=== PATIENT | male | born 1940 | race Caucasian/White ===

== ENCOUNTER 2019-04-20 13:17 | Observation (INO) | payer MEDICARE ==
--- NOTE | 2019-04-20 13:46 | ED ---
Neurological HPI - HPI Summary HPI Summary: This patient is a 78 year old M arriving via ambulance to [facility] with a chief complaint of increasing weakness since two days ago 04/18/19. Patient states that prior to arrival, as he was attempting to self-catheterize, patient slid off his bed due to increasing weakness in his bilateral lower extremities and landed on the floor and was unable to get up. Patient states that he usually self-catheterizes X2 a day yielding 64 oz. Patient additionally complains of feeling the urge to urinate, urinary retention, and decreased urine output since two days ago 04/18/19. Patient also complains of intermittent episodes of back spasms onset 1 week ago characterized as a jabbing pain which makes walking difficult. The patient rates the pain 0/10 in severity. Symptoms aggravated by nothing. Symptoms alleviated by nothing. Patient notes that he was diagnosed 6 months ago with swelling of left ventricle in his brain resulting in neuropathy in his bilateral lower extremities and bladder. - History of Current Complaint Chief Complaint: EDWeakness Stated Complaint: GENERAL WEAKNESS PER EMS Time Seen by Provider: 04/20/19 13:27 Hx Obtained From: Patient Onset/Duration: Started days ago - 04/18/19, Still Present Timing: Constant Current Severity: None Neurological Deficit Location: Generalized, RUE, LUE, RLE, LLE Pain Intensity: 0 Pain Scale Used: 0-10 Numeric Character: Weak Aggravating: Nothing Alleviating: Nothing - Allergy/Home Medications Allergies/Adverse Reactions: Allergies Allergy/AdvReac Type Severity Reaction Status Date / Time bee venom protein (honey bee) Allergy Anaphylatic Verified 04/20/19 13:48 Shock NO MRIs - PACEMAKER NOT Allergy NO MRIs - Uncoded 04/20/19 13:48 COMPATIBLE PACEMAKER NOT COMPATIBLE Home Medications: Home Medications Allopurinol 1 tab PO DAILY 04/20/19 [History Confirmed 04/20/19] Zinc 1 tab PO DAILY 04/20/19 [History Confirmed 04/20/19] PMH/Surg Hx/FS Hx/Imm Hx Endocrine/Hematology History: Reports: Hx Diabetes Cardiovascular History: Reports: Hx Hypertension, Hx Pacemaker/ICD - BIOTRONIK SHREE PATTERSON IS NOT MR COMPATIBLE/CONDITIONAL- NO MRIs - Surgical History Surgery Procedure, Year, and Place: PACEMAKER, BILATERAL HIP REPLACEMENT Infectious Disease History: No Infectious Disease History: Denies: Traveled Outside the [place] in Last 30 Days - Family History Known Family History: Positive: Hypertension, Diabetes - NIDDM - Social History Alcohol Use: Weekly Hx Substance Use: No Substance Use Type: Reports: None Hx Tobacco Use: Yes Smoking Status (MU): Light Every Day Tobacco Smoker Review of Systems Positive: urgency, other - urinary retention, decreased urine output Positive: Other - back spasms Positive: Weakness - 04/18/19 All Other Systems Reviewed And Are Negative: Yes Physical Exam - Summary Physical Exam Summary: Appearance: The patient is well-nourished in no acute distress and in no acute pain. Skin: The skin is warm, dry, and tense and skin color reflects adequate perfusion. HEENT: The head is normocephalic and atraumatic. The pupils are equal and reactive. The conjunctivae are clear and without drainage. Nares are patent and without drainage. Mouth reveals dry mucous membranes and the throat is without erythema and exudate. The external ears are intact. The ear canals are patent and without drainage. The tympanic membranes are intact. Neck: The neck is supple with full range of motion and non-tender. There are no carotid bruits. There is no neck vein distension. Respiratory: Chest is non-tender. Lungs are clear to auscultation and breath sounds are symmetrical and equal. Cardiovascular: Heart is regular rate and rhythm. There is no murmur or rub auscultated. There is no peripheral edema and pulses are symmetrical and equal. Abdomen: The abdomen is soft and non-tender. There are normal bowel sounds heard in all four quadrants and there is no organomegaly palpated. Musculoskeletal: There is no back tenderness noted. Extremities are non-tender with full range of motion. There is good capillary refill. There is no peripheral edema or calf tenderness elicited. Neurological: Patient is alert and oriented to person, place and time. The patient has symmetrical motor strength in all four extremities. Cranial nerves are grossly intact. Deep tendon reflexes are symmetrical and equal in all four extremities. Triage Information Reviewed: Yes Vital Signs On Initial Exam: Initial Vitals Temp Pulse Resp BP Pulse Ox 99.3 F 89 30 131/74 94 04/20/19 13:29 04/20/19 13:29 04/20/19 13:29 04/20/19 13:29 04/20/19 13:29 Vital Signs Reviewed: Yes Diagnostics - Vital Signs Vital Signs Temp Pulse Resp BP Pulse Ox 04/20/19 13:29 99.3 F 89 30 131/74 94 - Laboratory Result Diagrams: 04/20/19 13:46 04/20/19 13:46 Lab Statement: Any lab studies that have been ordered have been reviewed, and results considered in the medical decision making process. - Radiology Chest Xray Radiology Interpretation Completed By: Radiologist Summary of Radiographic Findings: IMPRESSION: No active disease is noted. No changes noted since June 22, 2015. ED Physician has reviewed this report. - EKG 1426 Cardiac Rate: NL - 90 BPM EKG Rhythm: Sinus Rhythm Summary of EKG Findings: Normal sinus rhythm at 90 BPM, Non-specific anterolateral leads Course/Dx - Course Course Of Treatment: Mr. Lovell presented with a concern for being very weak. He hasn't gotten out of bed really in 2 days. Today he was doing a self catheter and his legs were so weak that he slid out of bed. On presentation was nontoxic and in triage listed him as having a respiratory rate of 30, when I evaluated him in the room his respiratory rate was 16 and he was speaking in full sentences without any difficulty. His white blood cell count returned at 17,000. His respiratory rate varied but I did not consider him to be meeting septic criteria. He was however given fluids and antibiotics with the presumption of unknown organism. When he was cathetered was revealed that he likely had a urinary tract infection. He continued to be too weak really to get up and the hospitalists were contacted for admission. - Diagnoses Provider Diagnoses: UTI (urinary tract infection), Weakness - Physician Notifications Discussed Care Of Patient With: Lora Morgan Time Discussed With Above Provider: 15:51 Instructed by Provider To: Other - Dr. Morgan, Hospitalist, agrees to admit Discharge ED - Sign-Out/Discharge Documenting (check all that apply): Patient Departure - Admit Patient Received Moderate/Deep Sedation with Procedure: No - Discharge Plan Condition: Stable Disposition: ADMITTED TO [facility] Referrals: Winifred Miranda MD [Primary Care Provider] - - Billing Disposition and Condition Condition: STABLE Disposition: Admitted to [facility] - Attestation Statements Document Initiated by Scribe: Yes Documenting Scribe: Merced Butler Provider For Whom Scribe is Documenting (Include Credential): Alexx Monte MD Scribe Attestation: IMerced, scribed for Alexx Monte MD on 04/20/19 at 1800. Scribe Documentation Reviewed: Yes Provider Attestation: The documentation as recorded by the scribeMerced accurately reflects the service I personally performed and the decisions made by me, Alexx Monte MD Status of Scribe Document: Viewed
[2019-04-20 13:53] LABS: Hematocrit 41 % (42-52); Hemoglobin 13.9 g/dL (14.0-18.0); Mean Corpuscular HGB Conc 34 g/dL (31-36); Mean Corpuscular Hemoglobin 31 pg (27-31); Mean Corpuscular Volume 92 fL (80-94); Mean Platelet Volume 7.4 fL (7.4-10.4); Platelet Count 133 10^3/uL (150-450); Red Blood Count 4.43 10^6 /uL (4.18-5.48); Red Cell Distribution Width 14 % (10-15)
[2019-04-20 14:11] LABS: Albumin 3.9 g/dL (3.2-5.2); Albumin/Globulin Ratio 1.1 (1-3); BUN/Creatinine Ratio 15.1 (8-20); C Reactive Protein 197.31 mg/L (<8.01); Calcium 9.2 mg/dL (8.6-10.3); EGFR Non-African American 49.5 (>60); Globulin 3.4 g/dL (2-4); Magnesium 1.6 mg/dL (1.9-2.7); Potassium 3.8 mmol/L (3.5-5.0); Total Protein 7.3 g/dL (6.4-8.9)
[2019-04-20 14:13] LABS: Troponin I 0.01 ng/mL (<0.04)
[2019-04-20 14:15] LABS: ABS Basophils 0.1 10^3/ul (0-0.2); ABS Lymphocytes 0.9 10^3/ul (1.0-4.8); ABS Monocytes 1.1 10^3/ul (0-0.8); ABS Neutrophils 14.9 10^3/ul (1.5-7.7); Lymphocyte % 5.4 %
[2019-04-20] MEDS ORDERED: NS 0.9% 1000 ML** 2,000 ML IV ONE (14:15)
[2019-04-20 14:34] LABS: Urine Appearance Cloudy; Urine Bacteria 1+ (Absent); Urine Bilirubin Negative (Negative); Urine Blood 3+ (Negative); Urine Color Amber; Urine Glucose Negative (Negative); Urine Ketones Negative (Negative); Urine Nitrite Positive (Negative); Urine Protein 1+(30 mg/dL) (Negative); Urine Red Blood Cell 3+(>10/hpf) (Absent); Urine Specific Gravity 1.019 (1.010-1.030); Urine Squamous Epithelial Cell Present (Absent); Urine Urobilinogen Negative (Negative); Urine White Blood Cell 3+(>20/hpf) (Absent)
[2019-04-20] MEDS ORDERED: Piperacillin/Tazobac ADVAN(*) 3.375 GM in NS 0.9% 100 ML* 100 ML IVPB ONE (14:47)
[2019-04-20 14:59] LABS: TSH (Thyroid Stimulating Horm) 0.41 mcIU/mL (0.34-5.60)
[2019-04-20] MEDS ORDERED: Magnesium Sulfate 2 GM IV* 2 GM/50 ML BAG IVPB ONE (16:16)
[2019-04-20] MEDS ORDERED: Ondansetron INJ* 2 MG/ML VIAL IV PRN (16:48)
[2019-04-20] MEDS ORDERED: Acetaminophen TAB* 325 MG PO PRN (16:48)
[2019-04-20] MEDS ORDERED: Enoxaparin(*) 40 MG/0.4 ML SYR SUBCUT SCH (17:00)
[2019-04-20] MEDS: Lactated Ringers 1000 ML Bag* 1,000 ML IV SCH (18:14)
--- NOTE | 2019-04-20 20:22 | HP ---
CC: Dr. Sheets; Dr. Morgan* ADMISSION HISTORY AND PHYSICAL: DATE OF ADMISSION: 04/20/19 PRIMARY CARE PROVIDER: Dr. Sheets. MY ATTENDING WHILE IN THE HOSPITAL: Dr. Morgan* (dictated by ENRIQUE Hall ). CHIEF COMPLAINT: Weakness x5 days. HISTORY OF PRESENT ILLNESS: Mr. Lovell is a 78-year-old male with past medical history significant for neuropathy, chronic urinary retention with straight catheterization twice daily, coronary artery disease, and possible normal pressure hydrocephalus, who presents to the emergency department after 5 days ago he began having worsening back spasms without radicular pain or worsening focal weakness in his lower legs, but with worsening of feeling, generally of sleeping more and at that time, he was as normal able to urinate a small amount and then needed straight cath, but then he lost the ability to have any spontaneous urination, was needed to straight cath twice daily for a large amount. The patient slept approximately 14 hours last night. The patient fell yesterday and was able to get himself up and felt very weak and then today fell and was on the floor for approximately 20 minutes. The patient came to the emergency department and was found to have an elevated white blood cell count, positive urinalysis and was unable to walk adequately to be safe for outpatient treatment. We were asked to evaluate the patient for admission to the hospital. The patient had a fever of what he reports to be 101 at home this morning. 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 2. Emphysema. 3. Neuropathy. 4. Diabetes. 5. Urinary retention. 6. BPH. 7. Coronary artery disease. 8. Gout. 9. B12 deficiency. PAST SURGICAL HISTORY: 1. Bypass. 2. Pacemaker implantation. MEDICATIONS: 1. [place]-3 fatty acids 2000 mg p.o. b.i.d. 2. Cholecalciferol 5000 units p.o. daily. 3. Metformin 850 mg p.o. t.i.d. 4. Vitamin B12, 2500 mcg sublingual daily. 5. Rosuvastatin 5 mg p.o. weekly. 6. Allopurinol 100 mg p.o. daily. 7. Zinc 50 mg p.o. daily. ALLERGIES: Bee venom. FAMILY HISTORY: The patient's father of cancer at 84. The patient's mother of old age at 94. The patient has 1 sister, who has a focal painful neuropathy and had a brother who of complications of throat cancer treatment and has a sister who is healthy. SOCIAL HISTORY: The patient smokes 3 to 4 cigarettes a day. The patient drinks a small glass of wine nightly. The patient denies illicit drug use. The patient used to work as a junior copywriter and a contractor. The patient is and has 1 child. The patient's surrogate decision maker will be his , Fatuma Lovell. REVIEW OF SYSTEMS: A 14-point review of systems was reviewed and is negative except as above in the HPI. PHYSICAL EXAMINATION GENERAL: The patient is a 78-year-old male, who appears stated age, sitting comfortably in bed, in no acute distress. VITAL SIGNS: At the time of evaluation, temperature 99.3, pulse rate 87, respiratory rate 30, oxygen saturation 96% on room air, blood pressure 106/40. HEENT: Head: Normocephalic, atraumatic. Sclerae anicteric. No conjunctival injection. Nasal mucosa moist. Oral mucosa moist. No pharyngeal erythema, discharge, or exudate. NECK: Supple, nontender. No lymphadenopathy. No carotid bruit auscultated. No JVD. RESPIRATORY: Clear to auscultation bilaterally. No wheezes, rales, or rhonchi. Good air exchange bilaterally. CARDIAC: Regular rate and rhythm. No clicks, murmurs, gallops, or rubs. Pulses 2+ in the bilateral dorsalis pedis, posterior tibial, and radial areas. ABDOMEN: Soft, nontender, nondistended. Bowel sounds present, normoactive in all 4 quadrants. No hepatosplenomegaly. No abdominal bruits auscultated. No hepatojugular reflux. GENITOURINARY: No suprapubic or CVA tenderness. SKIN: Clean, dry and intact. No rashes. NEUROLOGIC: Cranial nerves II through XII intact. Strength 2/5 with dorsiflexion of the right foot. Negative straight leg raise. Unremarkable reflexes. Nonreactive Babinski's bilaterally. Strength preserved in bilateral upper extremities distally and proximally. The patient is too weak to assess gait. Cerebellar testing performed without difficulty. PSYCHIATRIC: Pleasant and cooperative. LABORATORY DATA: White blood cell count 17.0, hemoglobin 13.9, platelet count 133. Sodium 133, potassium 3.8, chloride 100, carbon dioxide 27, anion gap 6, BUN 21, creatinine 1.39, glucose 124. Lactic acid less than 0.3. Calcium 9.2. Magnesium 1.6. Bilirubin 2.0, AST 14, ALT 19, alkaline phosphatase 80. Troponin I 0.01. CRP 197.31. Protein 7.3. Albumin 3.9, globulin 3.4. TSH 0.41. Urine; gema, cloudy, 1+ protein, 3+ blood, positive nitrites, 2+ leukocyte esterase, 3+ white blood cells, 3+ red blood cells, squamous epithelial cells present, 1+ bacteria. DIAGNOSTIC STUDIES: Chest shows chronic interstitial changes in the left lower lobe. EKG shows normal sinus rhythm, no ST segment elevation or depression, no hypertrophy or enlargement, normal axis, QTc is 358, rate of 90. ASSESSMENT AND PLAN: Impression: Mr. Lovell is a 78-year-old male with past medical history significant for neuropathy, normal pressure hydrocephalus, chronic urinary retention, and coronary artery disease, who presented to the emergency department with findings consistent with urinary tract infection and likely exacerbation of his underlying neurologic deficits from this. 1. Weakness, urinary tract infection. The patient's weakness is very likely an exacerbation of his underlying neurologic deficits, possibly related to his normal pressure hydrocephalus, which was previously documented by a neurologist in [facility]. The patient also has underlying peripheral neuropathy and neuropathy related to previous radiculopathy. The patient is currently unable to ambulate. The patient will be admitted to the hospital and treated with ceftriaxone. Urine culture is pending. The patient had 2 L of fluids while in the emergency department and will have lactated Ringer's at 100 mL an hour. No further brain imaging is indicated at this time. The patient has no other signs of infection. The patient will be straight cathed 3 times daily as previously recommended by his urologist. The patient will be likely discharged on antibiotics, but after his discharge should discuss with his primary care provider the need for suppressive therapy as this is third urinary tract infection this year. Definitive therapy for his urinary retention may also be indicated. If the patient does not improve with fluids and antibiotics, further investigation towards the cause of his weakness will be indicated. The patient has a very low suspicion for cerebrovascular disease at this time. 2. Neuropathy. The patient's neuropathy is likely related to combination of B12 deficiency and diabetes. Continue the patient's metformin and B12 supplementation. Check daily fasting blood sugars and will recheck a B12 level to ensure supplementation is adequate. 3. Coronary artery disease. The patient has no signs of acute coronary syndrome. Continue rosuvastatin weekly upon discharge. 4. Emphysema. The patient has no signs of acute COPD exacerbation. The patient is mildly tachypneic. If this does not improve, repeat evaluation with a chest x- ray should be indicated. 5. Sepsis. The patient has sepsis meeting criteria with elevated white blood cell count, tachycardia, and tachypnea. The patient does not have hypotension. The patient received 2 L of fluid while in the emergency department. The patient was placed on appropriate antibiotics for his urinary tract infection. 6. Diabetes. Continue the patient's metformin. Monitor the patient's daily blood sugars. 7. Acute kidney injury. The patient's creatinine is elevated, 0.4 above his baseline. This is likely related to dehydration that always will be reevaluated with fluid resuscitation. DISPOSITION: The patient will be admitted to observation in the hospital. TIME SPENT: Approximately 60 minutes was spent on the admission of this patient , 30 of which was spent [id number] with the patient obtaining history and physical and discussing treatment plan. This plan was discussed with my attending, Dr. Lora Morgan, and she is in agreement. ENRIQUE HALL [id number]/CPS #: [id number] MTDD
[2019-04-20] MEDS: metFORMIN* 850 MG TAB PO SCH (21:03)
[2019-04-20] MEDS ORDERED: cefTRIAXone(*) 1 GM in NS 0.9% 50 ML* 50 ML IVPB SCH (22:00)
[2019-04-20] MEDS ORDERED: Allopurinol TAB* 100 MG PO SCH (23:00)
[2019-04-21] MEDS: Lactated Ringers 1000 ML Bag* 1,000 ML IV SCH (05:02)
[2019-04-21 05:30] LABS: ABS Lymphocytes 1.8 10^3/ul (1.0-4.8); ABS Monocytes 1.4 10^3/ul (0-0.8); ABS Neutrophils 10.8 10^3/ul (1.5-7.7); Eosinophil % 0.1 %; Hematocrit 37 % (42-52); Hemoglobin 12.2 g/dL (14.0-18.0); Lymphocyte % 12.5 %; Mean Corpuscular HGB Conc 33 g/dL (31-36); Mean Corpuscular Hemoglobin 31 pg (27-31); Mean Corpuscular Volume 93 fL (80-94); Mean Platelet Volume 7.7 fL (7.4-10.4); Nucleated Red Blood Cells % 0.1; Platelet Count 108 10^3/uL (150-450); Red Blood Count 3.95 10^6 /uL (4.18-5.48); Red Cell Distribution Width 14 % (10-15)
[2019-04-21 05:47] LABS: BUN/Creatinine Ratio 15.7 (8-20); Calcium 8.8 mg/dL (8.6-10.3); EGFR African American 66.5 (>60); Magnesium 2.2 mg/dL (1.9-2.7); Potassium 3.7 mmol/L (3.5-5.0)
[2019-04-21] MEDS ORDERED: Cholecalciferol TAB* 1000 UNITS PO SCH (09:00)
[2019-04-21] MEDS: metFORMIN* 850 MG TAB PO SCH ×2 (09:00→15:04)
[2019-04-21] MEDS ORDERED: Cyanocobalamin TAB* 500 MCG PO SCH (09:00)
[2019-04-21] MEDS ORDERED: ZINC 50 MG PO SCH (10:45)
[2019-04-21] MEDS ORDERED: OMEGA-3 FATTY ACIDS (NF) 1,000 MG CAP PO SCH (10:45)
[2019-04-21] MEDS ORDERED: cefTRIAXone(*) 1 GM in NS 0.9% 50 ML* 50 ML IVPB ONE (16:00)
[2019-04-21 16:05] VITALS: BP 107/59
[2019-04-22] MEDS ORDERED: Atorvastatin* 10 MG TAB PO SCH (09:00)
--- NOTE | 2019-04-22 22:01 | DS ---
CC: Dr. Winifred Sheets; Dr. Nicolette Melendez* DISCHARGE SUMMARY: DATE OF ADMISSION: 04/20/19 DATE OF DISCHARGE: 04/21/19 PRIMARY CARE PROVIDER: Dr. Winifred Sheets. MY ATTENDING WHILE IN THE HOSPITAL: Dr. Nicolette Melendez* (dictated by ENRIQUE Hall). PRIMARY DISCHARGE DIAGNOSES: 1. Urinary tract infection related to self catheterization. 2. Sepsis, resolved. 3. Idiopathic neuropathy. SECONDARY DISCHARGE DIAGNOSES: 1. Emphysema. 2. Diabetes mellitus type 2. 3. Chronic urinary retention. 4. Coronary artery disease. 5. Gout. 6. B12 deficiency. STUDIES DONE WHILE IN THE HOSPITAL: Chest x-ray from 04/20/19, read as active cardiopulmonary disease. EKG is unremarkable. EKG shows normal sinus rhythm, no ST segment elevation or depression, QTC of 358, rate of 90. MEDICATIONS AT DISCHARGE: 1. [place]-3 fatty acids 2000 mg p.o. b.i.d. 2. Vitamin D 5000 units p.o. daily. 3. Metformin 850 mg p.o. t.i.d. 4. Vitamin B12 sublingual tablet 2500 mcg sublingual daily. 5. Rosuvastatin 5 mg p.o. Saturday through Saturday. 6. Allopurinol 100 mg p.o. daily. 7. Zinc 50 mg p.o. daily. 8. Tylenol 650 mg q.6 hours as needed. 9. Cefuroxime 500 mg p.o. b.i.d. x10 doses. New medications on discharge: 1. Tylenol. 2. Cefuroxime. Medications discontinued at discharge: None. HOSPITAL COURSE: This is a brief summary of the patient's presentation. For more details, please see the history and physical from this author on 04/20/19. In brief, the patient is a 78-year-old male with past medical history significant for the above, who has chronic gait instability likely due to his neuropathy, who had several days of severely decreased functionality and falls before his admission. The patient had been self catheterizing himself but had noted that he is no longer making any urine spontaneously before his admission. The patient in the emergency department was found to have an elevated white blood cell count and urine positive for bacteria, nitrite, and leukocyte esterase. The patient was started on ceftriaxone and improved greatly overnight. The patient was able to ambulate over 100 feet with physical therapy. The patient did have fever while in the hospital. The patient met sepsis criteria with elevated white blood cell count, tachycardia greater than 90, tachypnea, and elevated temperature. The patient was given fluids and improved greatly overnight. The patient had repeat B12 level which was 563. The patient had very elevated CRP at 197.31. The patient was anxious for discharge. The patient's urine culture grew Enterobacter cloacae. He was prescribed cefuroxime at discharge due to his improvement on ceftriaxone. The patient was instructed to follow up with his primary care provider and his neurologist in [facility] for ongoing management as well as his urologist. The patient was stable and amenable for discharge on 04/21/19. PHYSICAL EXAM ON THE DAY OF DISCHARGE: General: The patient is a 78-year-old male who appears stated age, sitting comfortably in bed, in no acute distress. Vital Signs: Temperature 99.3, pulse rate 71, respiratory rate 18, oxygen saturation 97% on room air, blood pressure 107/59. HEENT: Head normocephalic, atraumatic. Sclerae anicteric. No conjunctival injection. Nasal mucosa moist. Oral mucosa moist. No pharyngeal erythema, discharge, or exudate. Neck: Supple, nontender. No lymphadenopathy. No carotid bruits auscultated. No JVD. Cardiac: Regular rate and rhythm. No clicks, murmurs, gallops, or rubs. Abdomen: Soft, nontender, nondistended. Bowel sounds present and normoactive in all 4 quadrants. No hepatosplenomegaly. No abdominal bruits auscultated. No hepatojugular reflux. Genitourinary: No suprapubic or CVA tenderness. Skin : Clean, dry, and intact. No rash. Neuro: Peripheral neuropathy up to the level of his knees, normal gait. Alert and oriented x3. Psychiatric: Pleasant and cooperative. DISCHARGE PLAN BY PROBLEM: 1. Urinary tract infection causing exacerbation of underlying gait instability. The patient's gait instability has improved greatly but he still does have some unsteadiness on his feet which is near his baseline. The patient has been treated with ceftriaxone, was transitioned to cefuroxime which his Enterobacter cloacae should be susceptible to. The patient's case discussed with his urologist Dr. Vasquez, who recommended good hand hygiene and sterilization of urethral meatus with straight catheterization as well as possible suppressive antibiotics through his primary care provider after his acute phase of antibiotics. Of note, the enterobacter that grew in the patient' s urine is resistant to cefazolin, nitrofurantoin, and Augmentin but is susceptible to Bactrim. 2. Gait instability, peripheral neuropathy. The patient has idiopathic peripheral neuropathy. The patient is currently undergoing an extensive evaluation through a neurologist in [facility] who he will be visiting in June. The patient should follow up with this appointment. 3. Chronic urinary retention. The patient has chronic retention, unclear etiology of this cause, maybe related to large prostate or peripheral neuropathy affecting his nervous system. The patient should follow up with his neurologist and urologist for evaluation of this. 4. Diabetes mellitus type 2. Continue the patient's metformin. DISPOSITION: The patient is discharged to home. CONDITION: Stable. TIME SPENT: Approximately 60 minutes was spent on the discharge of this patient , 30 of which was spent [id number] with the patient obtaining history and physical and discussing treatment plan. ENRIQUE HALL [id number]/CPS #: [id number]
== END 2019-04-21 17:00 | disposition home or self-care (01) ==
LOC: ED 13:17 → MED 16:48
PROVIDERS: ADMIT Hospitalist; ATTEND Internal Medicine
DX: N39.0 Urinary tract infection, site not specified (principal); A41.9 Sepsis, unspecified organism; G60.9 Hereditary and idiopathic neuropathy, unspecified; N40.1 Benign prostatic hyperplasia with lower urinary tract symptoms; R33.8 Other retention of urine; J43.9 Emphysema, unspecified; E11.9 Type 2 diabetes mellitus without complications; M10.9 Gout, unspecified; E53.8 Deficiency of other specified B group vitamins; Z79.899 Other long term (current) drug therapy; Z95.0 Presence of cardiac pacemaker; F17.210 Nicotine dependence, cigarettes, uncomplicated; I25.10 Atherosclerotic heart disease of native coronary artery without angina pectoris; G62.9 Polyneuropathy, unspecified; I10 Essential (primary) hypertension; R94.31 Abnormal electrocardiogram [ECG] [EKG]
CPT/HCPCS: 36415; 71046; 80048; 80053; 81003; 81015; 82607; 83605; 83735; 84443; 84484; 85025; 86140; 87077; 87086; 87186; 93005; 96361; 96365; 96366; 96367; 96372; 99284; A9270-GY; G0378; G8978-GP-CJ; G8979-GP-CI; G8987-GO-CI; G8988-GO-CH; J0696; J1650; J2543; J3475